=== PATIENT | female | born 1955 | race Caucasian/White ===

== ENCOUNTER → 2016-11-13 | Outpatient (CLI) | payer BC ==
[~2016-11-13] MED LIST: VERAMYST27.5 MCG/A NS
== END ==
LOC: COL.RAD 14:00
DX: N28.1 Cyst of kidney, acquired (principal); Z85.038 Personal history of other malignant neoplasm of large intestine

== ENCOUNTER → 2016-11-24 | Outpatient (CLI) | payer BC | LOC: MC.RAD 12:53 | DX: Z12.31 Encounter for screening mammogram for malignant neoplasm of breast (principal) ==

== ENCOUNTER → 2018-07-15 | Outpatient (CLI) | payer MEDICARE, OTHER | LOC: MC.RAD 14:45 | DX: Z12.31 Encounter for screening mammogram for malignant neoplasm of breast (principal) ==

== ENCOUNTER → 2019-08-16 | Outpatient (CLI) | payer MEDICARE, OTHER | LOC: MC.RAD 14:47 | DX: Z12.31 Encounter for screening mammogram for malignant neoplasm of breast (principal) ==

== ENCOUNTER → 2020-08-31 | Outpatient (CLI) | payer MEDICARE, OTHER | LOC: MC.RAD 13:12 | DX: Z12.31 Encounter for screening mammogram for malignant neoplasm of breast (principal) ==

== ENCOUNTER → 2021-10-22 | Outpatient (CLI) | payer MEDICARE, OTHER | LOC: MC.RAD 10:00 | DX: Z12.31 Encounter for screening mammogram for malignant neoplasm of breast (principal) ==

== ENCOUNTER → 2022-11-13 | Outpatient (CLI) | payer MEDICARE, OTHER | LOC: MC.RAD 08:15 | DX: Z12.31 Encounter for screening mammogram for malignant neoplasm of breast (principal) ==